=== PATIENT | female | born 1965 | race Caucasian/White ===

== ENCOUNTER 2019-08-14 21:29 | Emergency (ER) | payer MEDICAID, SELFPAY | END 2019-08-15 03:24 | disposition admitted as inpatient to this hospital (09) | LOC: ER 08-29 09:46 | PROVIDERS: Emergency Provider Emergency Medicine | DX: Z01.89 Encounter for other specified special examinations (principal) | CPT/HCPCS: 12345; 36415; 71045; 74177; 80053; 83690; 84484; 85025; 93005; 96365; 96375; 96376; 99283; 99285; J1170; J1200; J2270; J2405; J2543; J2765; Q9967 ==

== ENCOUNTER 2019-08-14 21:29 | Inpatient (IN) | payer MEDICAID, SELFPAY ==
--- NOTE | 2019-08-14 21:31 | XR_ITS ---
WS: [id number] Portable AP upright chest, 08/14/2019 Clinical Data: cp Comparison: None. Findings: No nodules, masses or effusions are seen. The heart is normal. The pulmonary vascularity is not increased. No pneumonia or pneumothorax is seen. XR/XR chest 1V portable [id number] Impression: Negative chest.
--- NOTE | 2019-08-14 21:31 | ECG_ITS ---
Measurements Intervals Street Rate: 87 P: 59 MS: 154 QRS: 24 QRSD: 92 T: 58 QT: 386 QTc: 466 SINUS RHYTHM POSSIBLE LEFT ATRIAL ENLARGEMENT [-0.1mV P WAVE IN V1/V2] MINIMAL ST DEPRESSION [0.025+ mV ST DEPRESSION] No previous ECG available for comparison Electronically Signed On 08-15-2019 12:54:14 CDT by Miranda Soler M.D. [id number]
[2019-08-14 22:00] VITALS: BP 181/123; PULSE 95; RESP 20; TEMP 37.3; O2SAT 96; BMI 38.4
[2019-08-14 22:08] LABS: Basophils # 0.1 10^3/uL (0.0-0.1); Basophils % 0.3 %; Eosinophils % 0.2 %; Hematocrit 49.1 % (37.0-47.0); Hemoglobin 16.7 g/dL (11.5-15.3); Lymphocytes # 2.7 10^3/uL (0.8-4.8); Lymphocytes % 14.1 %; Mean Corpuscular Hemoglobin 30.9 pg (28.0-34.0); Mean Corpuscular Volume 90.8 fL (81-99); Mean Platelet Volume 9.5 fL (7.4-10.4); Monocytes # 2.5 10^3/uL (0.2-0.9); Monocytes % 13.4 %; Neutrophils # 13.5 10^3/uL (1.8-7.7); Neutrophils % 71.5 %; Nucleated Red Blood Cells % 0 %; Platelet Count 329 10^3/cmm (130-400); Red Blood Count 5.41 10^6/uL (4.1-5.3); Red Cell Distribution Width 16.4 % (12.1-15.1); White Blood Count 18.9 10^3/uL (4.0-10.0)
[2019-08-14 22:22] LABS: Alanine Aminotransferase 13 U/L (0-33); Albumin Level 4.2 g/dL (3.5-5.2); Alkaline Phosphatase 117 IU/L (35-105); Anion Gap 17.3 (5-19); Aspartate Amino Transferase 18 U/L (0-32); Blood Urea Nitrogen 16 mg/dL (6-20); Carbon Dioxide 22 mmol/L (22-29); Chloride 104 mmol/L (98-107); Globulin 3.6 g/dL (1.3-4.6); Glomerular Filtration Rate 64.8 mL/min (90-130); Glucose 116 mg/dL (65-115); Osmolality Calculated 287 mOsm/kg (285-295); Potassium 3.3 mmol/L (3.5-5.1); Sodium 140 mmol/L (136-145); Total Bilirubin 0.5 mg/dL (0.15-1.2); Total Protein 7.8 g/dL (6.6-8.7)
[2019-08-14 22:31] LABS: Troponin(5th) Baseline 131 ng/mL (0-10)
--- NOTE | 2019-08-14 22:59 | ED_ITS ---
Entered by Brenda Restrepo, acting as scribe for Joo Lan MD Aug 14, 2019 21:29 HPI - Abdominal Pain General: Chief Complaint: Abdominal Pain Stated Complaint: CP Time Seen by Provider: 08/14/19 22:58 Source: patient Mode of arrival: ambulatory History of Present Illness: HPI narrative: 54 y/o female presents to the ED with complaint of abd/flank pain. Pt states he recently had her gallbladder removed and is scheduled to see Dr. Rodriguez Sunday morning for kidney stones. She has had burning/ pain with urination and last night had N/V, cold sweats and elevated HR. She states she has been in constant pain since before her gallbladder removal but last night it became exponentially worse . Her normal HR is in the 70s and last night she reached 170s-180s. Tonight she is also having chest pain ( from being in so much pain ). She does have a cardiac hx ( cardiomyopathy, stent placement, stenosis). MD elicited complaint: abdominal pain, flank pain and other (CP) Pertinent past history: kidney stones and other (cardiac hx) Pain Consistency: constant Location: Chest, RLQ, R flank and Pelvis Severity: severe Relieving factors: nothing Associated Symptoms: Reports chills, dysuria, nausea and vomiting; Denies diarrhea Review of Systems Const: Reports: chills and night sweats; Denies: body aches or change in appetite Eyes: Denies: blurry vision or eye discomfort ENMT: Denies: throat pain or dental pain Card: Reports: chest pain and shortness of breath on exertion GI: Reports: abdominal pain, nausea and vomiting; Denies: diarrhea : Reports: flank pain (R), painful urination and pelvic pain Musc: Denies: neck pain or back pain Neuro: Denies: headache Psych: Denies: depression Vipin/Lymph: Denies: easy bruising All/Imm: Denies: hives PFSH ED PFSH: Medical History Attention deficit hyperactivity disorder (ADHD) Family history of lactose intolerance History of breast cancer History of hiatal hernia History of irritable bowel syndrome History of kidney stones History of night terrors History of posttraumatic stress disorder (PTSD) Hypertension Spleen injury Vitamin D deficiency Surgical History History of breast lump removal x 7 1979's History of section x 4 History of cholecystectomy Family History Other Anesthesia complication Cancer Diabetes Hypertension Lung disease Stroke Social History Smoking and tobacco status: current every day smoker Second hand smoke exposure: Yes Smoking risk assessment/counseling performed?: Yes Alcohol intake: never Desire information about alcohol rehabilitation?: No Counseling given: No Desire information about substance/drug rehabilitation?: No Counseling given: No Adopted: No Caregiver/support person: Yes Lives independently: Yes Household members: significant other and caregiver Housing: House Marital status: Single service: No Current occupational status: unemployed 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 occupation: 4 History of recent travel: No Current gender identity: Female Physical Exam Const: COMMON NORMALS: oriented x3 NUTRITIONAL APPEARANCE: obese HENMT: COMMON NORMALS: normocephalic and head/scalp atraumatic HEAD & SCALP: normocephalic and atraumatic Eye: COMMON NORMALS: PERRL and EOMs intact bilaterally PUPIL: Yes PERRL Neck/C-Spine: COMMON NORMALS: full ROM and supple Chest: COMMONS NORMALS: inspection of chest normal and palpation of chest normal Resp: COMMON NORMALS: normal respiratory effort, no retractions, no use of accessory muscles and clear to auscultation bilaterally AUSCULTATION: clear to auscultation bilaterally Cardio: COMMON NORMALS: regular rhythm and no murmurs RATE: tachycardic RHYTHM: regular rhythm GI: COMMON NORMALS: normal to inspection, nondistended, normoactive bowel sounds, soft to palpation and no masses PALPATION: Yes soft and Yes tender Extremity: COMMON NORMALS: normal to inspection and full ROM Neuro: COMMON NORMALS: oriented x3, moves all extremities and no focal motor deficits SPEECH: other (pressured speech) Psych: COMMON NORMALS: mental status grossly normal and thought process normal THOUGHT PROCESS: normal thought process Skin: COMMON NORMALS: no rashes or lesions noted and no wounds GENERAL SKIN EXAM: no rashes or lesions noted Course Vital Signs: Vital signs: Vital Signs Temperature 98.6 F 08/14/19 23:25 Pulse Rate 88 08/15/19 00:48 Respiratory Rate 18 08/15/19 01:37 Blood Pressure 166/121 08/15/19 00:48 Pulse Oximetry 94 08/15/19 00:48 MDM - Abdominal Pain MDM Narrative: Medical decision making narrative: Patient presents here with flank pain abdominal pain from a kidney stone. Patient's pain is improved here. CT scan shows a 5 mm kidney stone. Patient also has elevated troponin I spoke to Dr. Card and will admit to trend troponin. Also spoke to Dr. Rodriguez and will admit for kidney stone as well. Lab Data: Labs: Lab Results 08/14/19 08/14/19 08/14/19 Range/Units 21:49 21:49 21:49 WBC 18.9 H (4.0-10.0) 10^3/ uL RBC 5.41 H (4.1-5.3) 10^6/u L Hgb 16.7 H (11.5-15.3) g/dL Hct 49.1 H (37.0-47.0) % MCV 90.8 (81-99) fL MCH 30.9 (28.0-34.0) pg MCHC 34.0 (30.0-36.0) g/dL RDW 16.4 H (12.1-15.1) % Plt Count 329 (130-400) 10^3/c mm MPV 9.5 (7.4-10.4) fL Neut % (Auto) 71.5 % Lymph % (Auto) 14.1 % [place] % (Auto) 13.4 % Eos % (Auto) 0.2 % Baso % (Auto) 0.3 % Neut # (Auto) 13.5 H (1.8-7.7) 10^3/u L Lymph # (Auto) 2.7 (0.8-4.8) 10^3/u L [place] # (Auto) 2.5 H (0.2-0.9) 10^3/u L Eos # (Auto) 0.0 (0.0-0.8) 10^3/u L Baso # (Auto) 0.1 (0.0-0.1) 10^3/u L Nucleated RBC % (a uto) 0 % Nucleated RBCs # 0.0 /100WBC Sodium 140 (136-145) mmol/L Potassium 3.3 L (3.5-5.1) mmol/L Chloride 104 (98-107) mmol/L Carbon Dioxide 22 (22-29) mmol/L Anion Gap 17.3 (5-19) BUN 16 (6-20) mg/dL Creatinine 0.9 (0.5-0.9) mg/dL GFR Calculation 64.8 L (90-130) mL/min Glucose 116 H (65-115) mg/dL Calculated Osmolal ity 287 (285-295) mOsm/k g Calcium 10.0 (8.5-10.5) mg/dL Total Bilirubin 0.5 (0.15-1.2) mg/dL AST 18 (0-32) U/L ALT 13 (0-33) U/L Alkaline Phosphata se 117 H (35-105) IU/L Troponin T Baselin e 131 H* (0-10) ng/mL Troponin T 120 Min [place] (0-10) ng/mL Delta Troponin T (0-10) ABS# Total Protein 7.8 (6.6-8.7) g/dL Albumin 4.2 (3.5-5.2) g/dL Globulin 3.6 (1.3-4.6) g/dL Lipase (13-60) U/L Urine Color (Yellow) Urine Appearance (CLEAR) Urine pH (5-7) Ur Specific Gravit y (1.005-1.030) Urine Protein (Negative) Urine Glucose (UA) (Normal) Urine Ketones (Negative) Urine Blood (Negative) Urine Nitrate (Negative) Urine Bilirubin (NEGATIVE) Urine Urobilinogen (Negative) mg/dL Ur Leukocyte Arabella ase (Negative) Urine RBC (0-2) /hpf Urine WBC (0-5) /hpf Ur Squamous Epith Cells (0-5) Urine Bacteria (NONE) Hyaline Casts Urine Mucus 08/14/19 08/14/19 08/15/19 Range/Units 21:49 23:50 00:22 WBC (4.0-10.0) 10^3/ uL RBC (4.1-5.3) 10^6/u L Hgb (11.5-15.3) g/dL Hct (37.0-47.0) % MCV (81-99) fL MCH (28.0-34.0) pg MCHC (30.0-36.0) g/dL RDW (12.1-15.1) % Plt Count (130-400) 10^3/c mm MPV (7.4-10.4) fL Neut % (Auto) % Lymph % (Auto) % [place] % (Auto) % Eos % (Auto) % Baso % (Auto) % Neut # (Auto) (1.8-7.7) 10^3/u L Lymph # (Auto) (0.8-4.8) 10^3/u L [place] # (Auto) (0.2-0.9) 10^3/u L Eos # (Auto) (0.0-0.8) 10^3/u L Baso # (Auto) (0.0-0.1) 10^3/u L Nucleated RBC % (a uto) % Nucleated RBCs # /100WBC Sodium (136-145) mmol/L Potassium (3.5-5.1) mmol/L Chloride (98-107) mmol/L Carbon Dioxide (22-29) mmol/L Anion Gap (5-19) BUN (6-20) mg/dL Creatinine (0.5-0.9) mg/dL GFR Calculation (90-130) mL/min Glucose (65-115) mg/dL Calculated Osmolal ity (285-295) mOsm/k g Calcium (8.5-10.5) mg/dL Total Bilirubin (0.15-1.2) mg/dL AST (0-32) U/L ALT (0-33) U/L Alkaline Phosphata se (35-105) IU/L Troponin T Baselin e (0-10) ng/mL Troponin T 120 Min [place] 146.5 H (0-10) ng/mL Delta Troponin T 15.5 H* (0-10) ABS# Total Protein (6.6-8.7) g/dL Albumin (3.5-5.2) g/dL Globulin (1.3-4.6) g/dL Lipase 11 L (13-60) U/L Urine Color Yellow (Yellow) Urine Appearance Hazy A (CLEAR) Urine pH 5 (5-7) Ur Specific Gravit y 1.025 (1.005-1.030) Urine Protein Trace (Negative) Urine Glucose (UA) Norm (Normal) Urine Ketones Negative (Negative) Urine Blood 3+ H (Negative) Urine Nitrate Negative (Negative) Urine Bilirubin 1+ H (NEGATIVE) Urine Urobilinogen 1 H (Negative) mg/dL Ur Leukocyte Arabella ase Negative (Negative) Urine RBC >100 H (0-2) /hpf Urine WBC None (0-5) /hpf Ur Squamous Epith Cells 0-4 H (0-5) Urine Bacteria Trace (NONE) Hyaline Casts 0-4 H Urine Mucus 1+ Imaging Data ^: CT Abd/Pel: Radiologist's impression: CT Scan Report Signed Patient: Rodney Nunez #: [id number] : 1965Acct#:[id number] Age/Sex: 54 / FADM Date: 08/14/19 Loc: ERRoom/Bed: Attending Dr: Ordering Provider/Ordering MD: Joo Lan MD Date of Service: 08/14/19 Procedure(s): CT abdomen pelvis w con* [id number] Accession Number(s): [id number] Report Number: [id number] PROCEDURE INFORMATION: Exam: CT Abdomen And Pelvis With Contrast Exam date and time: 08/14/2019 11:11 PM Age: 54 years old Clinical indication: Nausea and vomiting; Abdominal pain; Generalized; Prior surgery; Surgery date: 6+ months; Surgery type: Cholecystectomy, spleenectomy; Additional info: Abd pain TECHNIQUE: Imaging protocol: Computed tomography of the abdomen and pelvis with intravenous contrast. Total DLP: 1701.68 mGy-cm Radiation optimization: All CT scans at this facility use at least one of these dose optimization techniques: automated exposure control; mA and/or kV adjustment per patient size (includes targeted exams where dose is matched to clinical indication); or iterative reconstruction. Contrast material: OMNI 300; Contrast volume: 95 ml; Contrast route: 20G; COMPARISON: No relevant prior studies available. FINDINGS: Liver: Normal. No mass. Gallbladder and bile ducts: Cholecystectomy. Pancreas: Normal. No ductal dilation. Spleen: Normal. No splenomegaly. Adrenals: Normal. No mass. Kidneys and ureters: Bilateral renal cysts. Right kidney nonobstructive calyceal stones. Right mid ureter 5 mm calculus with moderate hydronephrosis and hydroureter with some heterogeneous enhancement of the right kidney perhaps reflecting infection. Stomach and bowel: Unremarkable. No obstruction. No mucosal thickening. Appendix: No evidence of appendicitis. Intraperitoneal space: Unremarkable. No free air. No significant fluid collection. Vasculature: Unremarkable. No abdominal aortic aneurysm. Lymph nodes: Unremarkable. No enlarged lymph nodes. Bladder: Unremarkable as visualized. Reproductive: Unremarkable as visualized. Bones/joints: Unremarkable. No acute fracture. Soft tissues: Unremarkable. CT/CT abdomen pelvis w con* [id number] IMPRESSION: 1. Right mid ureter 5 mm calculus with moderate hydronephrosis and hydroureter with some heterogeneous enhancement of the right kidney perhaps reflecting infection. 2. Cholecystectomy. 3. Bilateral renal cysts. 4. Right kidney nonobstructive calyceal stones. Radiation Dose CTDIVOL = (mGy): DLP = 1701.68 (mGy-cm) CXR: Attestation: I personally reviewed and interpreted this imaging study as follows: My impression: no acute abnormaity EKG Data ^: EKG 1: Attestation: I personally reviewed and interpreted this EKG as follows: EKG interpretation date: 08/14/19 EKG interpretation time: 23:09 Interpretation: nsr hr [address] or t wave abnormalities qrs 92 qtc 431 EKG 2: Attestation: I personally reviewed and interpreted this EKG as follows: EKG interpretation date: 08/15/19 EKG interpretation time: 00:01 Interpretation: nsr hr [address] or t wave abnormalities Discharge Plan Discharge Patient Disposition: Admitted As Inpatient Clinical Impression: Renal calculus, right Condition: Stable Coding Level of Care Code 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
--- NOTE | 2019-08-14 23:05 | CTR_ITS ---
PROCEDURE INFORMATION: Exam: CT Abdomen And Pelvis With Contrast Exam date and time: 08/14/2019 11:11 PM Age: 54 years old Clinical indication: Nausea and vomiting; Abdominal pain; Generalized; Prior surgery; Surgery date: 6+ months; Surgery type: Cholecystectomy, spleenectomy; Additional info: Abd pain TECHNIQUE: Imaging protocol: Computed tomography of the abdomen and pelvis with intravenous contrast. Total DLP: 1701.68 mGy-cm Radiation optimization: All CT scans at this facility use at least one of these dose optimization techniques: automated exposure control; mA and/or kV adjustment per patient size (includes targeted exams where dose is matched to clinical indication); or iterative reconstruction. Contrast material: OMNI 300; Contrast volume: 95 ml; Contrast route: 20G; COMPARISON: No relevant prior studies available. FINDINGS: Liver: Normal. No mass. Gallbladder and bile ducts: Cholecystectomy. Pancreas: Normal. No ductal dilation. Spleen: Normal. No splenomegaly. Adrenals: Normal. No mass. Kidneys and ureters: Bilateral renal cysts. Right kidney nonobstructive calyceal stones. Right mid ureter 5 mm calculus with moderate hydronephrosis and hydroureter with some heterogeneous enhancement of the right kidney perhaps reflecting infection. Stomach and bowel: Unremarkable. No obstruction. No mucosal thickening. Appendix: No evidence of appendicitis. Intraperitoneal space: Unremarkable. No free air. No significant fluid collection. Vasculature: Unremarkable. No abdominal aortic aneurysm. Lymph nodes: Unremarkable. No enlarged lymph nodes. Bladder: Unremarkable as visualized. Reproductive: Unremarkable as visualized. Bones/joints: Unremarkable. No acute fracture. Soft tissues: Unremarkable. CT/CT abdomen pelvis w con* [id number] IMPRESSION: 1. Right mid ureter 5 mm calculus with moderate hydronephrosis and hydroureter with some heterogeneous enhancement of the right kidney perhaps reflecting infection. 2. Cholecystectomy. 3. Bilateral renal cysts. 4. Right kidney nonobstructive calyceal stones. Radiation Dose CTDIVOL = (mGy): DLP = 1701.68 (mGy-cm)
[2019-08-14 23:24] VITALS: RESP 18
[2019-08-14] MEDS: ondansetron 2 mg/ML SDV 2 mL 4 MG IVP (23:24)
[2019-08-14] MEDS: HYDROmorphone 1 mg/mL INJ 1 mL IVP (23:24)
[2019-08-14 23:25] VITALS: BP 184/110; PULSE 75; RESP 18; TEMP 37; O2SAT 96
--- NOTE | 2019-08-14 23:31 | ECG_ITS ---
Measurements Intervals [place] Rate: 75 P: 63 CA: 157 QRS: 48 QRSD: 101 T: 60 QT: 431 QTc: 484 SINUS RHYTHM POSSIBLE LEFT ATRIAL ENLARGEMENT [-0.1mV P WAVE IN V1/V2] LOW QRS VOLTAGE IN PRECORDIAL LEADS [QRS DEFLECTION < 1.0 mV IN CHEST LEADS] POSSIBLE ANTERIOR MYOCARDIAL INFARCTION , PROBABLY OLD [30 ms Q WAVE IN V3/V4, OR R < 0.2 mV IN V4] No previous ECG available for comparison Electronically Signed On 08-15-2019 13:04:19 CDT by Miranda Soler M.D. [id number]
[2019-08-14 23:33] LABS: Lipase 11 U/L (13-60)
[2019-08-14] MEDS: iohexol 300 mg/mL 100 mL Btl IV (23:40)
[2019-08-14 23:58] VITALS: BP 133/99; PULSE 99; RESP 15; O2SAT 95
--- NOTE | 2019-08-14 23:58 | PC.NURSE ---
EKG done at 2355 and shown to ER doctor
[2019-08-15] VITALS (22 sets, daily range): BP systolic 124–186; BP diastolic 68–121; PULSE 57–88; RESP 16–22; TEMP 36.4–36.8; O2SAT 91–96
[2019-08-15 00:29] LABS: Troponin 5 2HR 146.5 ng/mL (0-10); Troponin 5 2HR Delta 15.5 ABS# (0-10)
[2019-08-15] MEDS: HYDROmorphone 1 mg/mL INJ 1 mL IVP ×2 (00:45)
[2019-08-15] MEDS: ondansetron 2 mg/ML SDV 2 mL 4 MG IVP ×3 (00:46→14:28)
[2019-08-15 00:50] LABS: Blood Urine 3+ (Negative); Glucose Urine UA Norm (Normal); Ketones Urine Negative (Negative); Protein Urine Trace (Negative); Specific Gravity, Urine 1.025 (1.005-1.030); Urine Appearance Hazy (CLEAR); Urine Color Yellow (Yellow); pH Urine 5 (5-7)
[2019-08-15 00:51] LABS: Add Urine Microscopic? YES; Bilirubin Urine 1+ (NEGATIVE); Leukocyte Esterase Urine Negative (Negative); Nitrate Urine Negative (Negative); Urobilinogen Urine 1 mg/dL (Negative)
[2019-08-15 00:57] LABS: Add Urine Culture? Yes; Bacteria Urine TRACE; Hyaline Casts Urine 0-4; Mucus Urine 1+; RBC Urine >100 /hpf (0-2); Squamous Epithelial Cell Urine 0-4 (0-5)
--- NOTE | 2019-08-15 01:10 | P.HP_ITS ---
Providers/Chief Complaint Chief Complaint: CP History of Present Illness Maribel Nunez is a 54 year old female who has established coronary disease, stent 13 years ago, hiatal hernia, irritable bowel syndrome, chronic kidney stone came in with chief complaint of worsening abdominal pain. Patient is stating that she got diagnosed with kidney stone 3 weeks ago, she has been having recurrent abdominal pains without any nausea or vomiting until last night when she started experiencing nausea, vomiting, excruciating abdominal pain more than 10, radiating towards her groin and back associated with hot flashes, fever, chills. She initially thought she is having flareup of IBS took a laxative and then her symptoms got worse. She is denying chest pain, shortness of breath, she is smoking half a pack a day, denies alcohol use on daily basis. Diagnostics in ER revealed sepsis secondary to right-sided pyelonephritis, 5 mm kidney stone She has received Zosyn in ER She kept drinking water while sitting in ER now having recurrent bouts of emesis She received multiple doses of Reglan and Zofran EKG shows normal sinus rhythm, her troponin significantly high, no signs of ischemia on EKG Patient is stating her temperature at home was 102 and was was 99 Review of Systems Const: Reports: fever, chills and body aches Eyes: Denies: change in vision ENMT: Denies: throat pain Card: Denies: chest pain Resp: Denies: shortness of breath GI: Reports: abdominal pain, nausea, vomiting, bloating and cramping : Reports: flank pain, difficulty urinating, painful urination, urinary frequency and blood in urine Musc: Denies: neck pain or back pain Skin/Breast: Denies: rash Neuro: Denies: headache Psych: Reports: anxiety and irritability Endo: Denies: excessive urination Vipin/Lymph: Denies: easy bruising All/Imm: Denies: hives Medications/Allergies Allergies Allergy/AdvReac Type Severity Reaction Status Date / Time codeine Allergy hives Verified 07/28/19 15:00 latex Allergy ALGY-Rash Verified 08/14/19 22:07 montelukast [From Singulair] Allergy Makes her Verified 07/28/19 15:00 feel fussy Sulfa Drugs Allergy Rash Uncoded 07/28/19 15:00 PFSH Acute PFSH: Medical History (Updated 08/15/19 @ 02:15 by Sridhar Jhaveri MD) Attention deficit hyperactivity disorder (ADHD) Coronary disease Family history of lactose intolerance History of breast cancer History of hiatal hernia History of irritable bowel syndrome History of kidney stones History of night terrors History of posttraumatic stress disorder (PTSD) Hypertension Spleen injury Vitamin D deficiency Surgical History (Updated 08/15/19 @ 02:15 by Sridhar Jhaveri MD) History of breast lump removal x 7 1980's History of section x 4 History of cholecystectomy Stented coronary artery Family History Other Anesthesia complication Cancer Diabetes Hypertension Lung disease Stroke Social History Smoking and tobacco status: current every day smoker Second hand smoke exposure: Yes Smoking risk assessment/counseling performed?: Yes Alcohol intake: never Desire information about alcohol rehabilitation?: No Counseling given: No Desire information about substance/drug rehabilitation?: No Counseling given: No Adopted: No Caregiver/support person: Yes Lives independently: Yes Household members: significant other and caregiver Housing: House Marital status: Single service: No Current occupational status: unemployed Current occupation: 4 History of recent travel: No Current gender identity: Female Vitals/I&O/Wt Last Vital Signs Temp 98.6 F 08/14/19 23:25 Pulse 88 08/15/19 00:48 Resp 18 08/15/19 00:48 BP 166/121 08/15/19 00:48 Pulse Ox 94 08/15/19 00:48 Weight last 48 hrs Weight 95.254 kg Physical Exam Narrative: EXAM NARRATIVE: Appears stated age In severe distress due to abdominal pain, she has her right hand on her right f lank and groin area She is having multiple bouts of emesis, bilious vomitus contents No active chest pain, S1, S2 sinus tachycardia heart rate 105 Chest is clear to auscultation with mild crackles at the bases Abdomen soft, severe tenderness right CVA, she is not letting me examine her abdomen Lower extremity no signs of edema gangrene or ulcer Patient is very irritable because of the pain Data : 08/14/19 21:49 08/14/19 21:49 A&P Assessment and plan (1) Renal calculus, right: Status: Acute Code(s): N20.0 - Calculus of kidney Additional A&P Information Sepsis secondary to right-sided pyelonephritis Sepsis criteria met with tachycardia, leukocytosis, will check lactic acid, 5 mm right mid ureter calculus with moderate hydronephrosis D5 half-normal saline with potassium fluids running at 100 mL/h I would use ceftriaxone 5 mm stone is most likely the nidus of infection, consult Dr. Rodriguez, ER physician Dr. Lan has contacted Dr. Rodriguez Blood culture, urine culture sent Abnormal troponin without active chest pain Patient is chest pain-free, EKG showing normal sinus rhythm without any ischemic changes on filing or registry clerk closely with serial EKGs and troponin She has a history of car established coronary disease with stent placement 13 years ago Irritable bowel syndrome: No active exacerbation Hypokalemia: Repleted Fluids: D5 half-normal with potassium DVT prophylaxis SCDs, avoid anticoagulation in case she would need any intervention N.p.o. Attestations Medical Necessity Statement*: Anticipating stay in the hospital to cross more than 2 midnights for right pyonephritis and kidney stone and monitor for abnormal troponin Time Spent in Patient Care: 40 Coding Level of Care Code Acute Edge Banding Off Bearer for [facility] Fwd Diagnoses Renal calculus, right N20.0
[2019-08-15] MEDS: diphenhydrAMINE 50 mg/mL SDV 1mL IVP (01:37)
[2019-08-15] MEDS: morphine 4 mg/mL SDV 1 mL IVP ×5 (01:37→14:07)
[2019-08-15] MEDS: metoclopramide 5 mg/mL SDV 2 mL 10 MG IVP (01:37)
[2019-08-15] MEDS: piperacillin-tazobactam 3.375 GM in sodium chloride 0.9% (plus) 100 ML IV (01:38)
--- NOTE | 2019-08-15 03:20 | PC.NURSE ---
EKG done 314 and shown to ER doctor
--- NOTE | 2019-08-15 03:31 | ECG_ITS ---
Measurements Intervals [place] Rate: 66 P: 70 TX: 179 QRS: 42 QRSD: 89 T: 60 QT: 510 QTc: 535 SINUS RHYTHM LOW QRS VOLTAGE IN PRECORDIAL LEADS [QRS DEFLECTION < 1.0 mV IN CHEST LEADS] MODERATE ST DEPRESSION [0.05+ mV ST DEPRESSION] PROLONGED QT INTERVAL CRITICAL TEST RESULT No previous ECG available for comparison Electronically Signed On 08-15-2019 13:02:30 CDT by Miranda Soler M.D. [email or web address]
[2019-08-15] MEDS: dextrose 5%-ns + KCl 20 20 MEQ/1,000 ML BAG 100 MEQ IV ×2 (04:14→14:25)
[2019-08-15 05:54] LABS: Basophils % 0.3 %; Eosinophils % 0.2 %; Hematocrit 47.3 % (37.0-47.0); Hemoglobin 15.9 g/dL (11.5-15.3); Lymphocytes # 2.6 10^3/uL (0.8-4.8); Lymphocytes % 22.3 %; Mean Corpuscular HGB Conc 33.6 g/dL (30.0-36.0); Mean Corpuscular Hemoglobin 31.9 pg (28.0-34.0); Mean Corpuscular Volume 94.8 fL (81-99); Mean Platelet Volume 9.4 fL (7.4-10.4); Monocytes # 1.4 10^3/uL (0.2-0.9); Neutrophils # 7.6 10^3/uL (1.8-7.7); Neutrophils % 64.9 %; Nucleated Red Blood Cells % 0 %; Platelet Count 313 10^3/cmm (130-400); Red Blood Count 4.99 10^6/uL (4.1-5.3); Red Cell Distribution Width 16.7 % (12.1-15.1); White Blood Count 11.8 10^3/uL (4.0-10.0)
--- NOTE | 2019-08-15 05:58 | P.CONIM_ITS ---
Providers/Reason For Consult Consulting Physican/Specialty*: Rodriguez/Urology Reason for Consult*: stone, pain Attending Physician: Sridhar Jhaveri MD History of Present Illness History of Present Illness Maribel Nunez is a 54 year old female admitted through ED with 2+ week history of RIGHT renal colicky pain, self reported fever, CT diagnosis of obstructing 5mm RIGHT proximal ureteral stone, leukocytosis, but no pyuria on UA at admission. Pain was refractory,severe and not well controlled in ED. Additional stone in RIGHT kidney. Complicated by chronic PLAVIX use and mixed reports of Chest Pain. Troponins drawn in ED were elevated. Received a dose of TORADOL in ED. Received dose of Zosyn in ED and Rocephin therapeutic dosing on admission for concerns of obstructive pyelonephritis/possible sepsis. Lactic acid = 0.9 Followup WBC this AM had decreased from 18-11. Pain better controlled per nursing note review. I reviewed her options in detail including delayed ESWL with or without stent in preliminary, endoscopy or just stenting with delayed treatment. Due to the refractory pain and the severity of the pain she has elected proceed with attempt at endoscopic treatment of the stone later today and if unsuccessful in accessing the stone then simply stent placement with either delayed endoscopy after passive dilation or delayed ESWL after adequate time off of blood thinner. All of this will be contingent upon risk assessment from cardiac perspective given her elevated troponins. Review of Systems Const: Reports: fever; Denies: change in weight Eyes: Denies: change in vision or blurry vision ENMT: Denies: throat pain or painful swallowing Card: Reports: chest pain (Very transient chest pain when she was having severe renal colic and associated shortness of breath. Resolved) Resp: Denies: productive cough or wheezing GI: Reports: abdominal pain, nausea and vomiting; Denies: vomiting blood : Reports: flank pain; Denies: urinary hesitancy Musc: Reports: back pain (More typical for renal colic though) Skin/Breast: Denies: rash, itching or redness Neuro: Denies: dizziness, confusion or slurred speech Psych: Reports: anxiety (Related to her ongoingSymptoms from the stone); Denies: depression Endo: Denies: heat intolerance or change in body appearance Vipin/Lymph: Reports: easy bruising; Denies: petechiae or enlarged lymph nodes All/Imm: Denies: facial swelling or acute wheezing Meds/Allergies Home Medications and Allergies Home Medications Medication Instructions Recorded Confirmed Type albuterol sulfate 2 mg/5 mL oral 2 mg PO TID PRN 07/28/19 08/15/19 History syrup albuterol sulfate 90 mcg/actuation 2 puff INHALATION QID PRN 07/28/19 08/15/19 History aerosol inhaler atorvastatin 40 mg tablet 40 mg PO DAILY 07/28/19 08/15/19 History benzonatate 200 mg capsule 200 mg PO BID PRN #60 cap 07/28/19 08/15/19 Rx bumetanide 0.5 mg tablet 0.5 mg PO DAILY 07/28/19 08/15/19 History cetirizine 10 mg capsule 10 mg PO DAILY 07/28/19 08/15/19 History clopidogrel 75 mg tablet 75 mg PO DAILY 07/28/19 08/15/19 History epinephrine 0.3 mg/0.3 mL 0.3 mg IM Q15M PRN 07/28/19 08/15/19 History injection syringe fluticasone propionate 50 2 spray INTRANASAL DAILY PRN 07/28/19 08/15/19 History mcg/actuation nasal spray,suspension hydrocortisone 1 % topical cream 1 applic TOPICAL TID PRN 07/28/19 08/15/19 History hyoscyamine sulfate 0.125 mg tablet 0.125 mg PO QID 07/28/19 08/15/19 History ipratropium 0.5 mg-albuterol 3 mg 3 ml INHALATION QID PRN 07/28/19 08/15/19 History (2.5 mg base)/3 mL nebulization soln lisinopril 5 mg tablet 5 mg PO DAILY 07/28/19 08/15/19 History lubiprostone 24 mcg capsule 24 mcg PO DAILY 07/28/19 08/15/19 History metoprolol tartrate 25 mg tablet 25 mg PO DAILY 07/28/19 08/15/19 History naproxen sodium 220 mg tablet 220 mg PO BID PRN 07/28/19 08/15/19 History nitroglycerin 0.4 mg sublingual 0.4 mg SUBLINGUAL Q5M PRN 07/28/19 08/15/19 History tablet omeprazole 40 mg capsule,delayed 40 mg PO BID 07/28/19 08/15/19 History release potassium chloride 20 mEq 20 meq PO DAILY 07/28/19 08/15/19 History tablet,extended release promethazine 25 mg tablet 25 mg PO TID PRN 07/28/19 08/15/19 History sertraline 100 mg tablet 100 mg PO DAILY 07/28/19 08/15/19 History tiotropium bromide 18 mcg capsule 1 cap INHALATION DAILY 07/28/19 08/15/19 History with inhalation device triamcinolone acetonide 0.1 % 1 applic TOPICAL BID PRN 07/28/19 08/15/19 History topical cream Allergies Allergy/AdvReac Type Severity Reaction Status Date / Time codeine Allergy hives Verified 07/28/19 15:00 latex Allergy ALGY-Rash Verified 08/14/19 22:07 montelukast [From Singulair] Allergy Makes her Verified 07/28/19 15:00 feel fussy Sulfa Drugs Allergy Rash Uncoded 07/28/19 15:00 Current Medications Current Medications Generic Name Dose Route Start Last Admin Trade Name Freq PRN Reason Stop Dose Admin Potassium Chloride/Dextrose/Sod Cl 20 meq in 1,000 mls @ 100 mls/hr 08/15/19 03:33 08/15/19 04:14 Dextrose 5%-Ns + Kcl 20 IV 100 mls/hr .Q10H HEATHER Administration Morphine Sulfate 4 mg 08/15/19 03:33 08/15/19 04:07 Morphine IVP 4 mg Q2H PRN Administration SEVERE PAIN PFSH Acute PFSH: Medical History (Updated 08/15/19 @ 07:58 by Colin Rodriguez MD) Attention deficit hyperactivity disorder (ADHD) Coronary disease Family history of lactose intolerance History of breast cancer History of hiatal hernia History of irritable bowel syndrome History of kidney stones History of night terrors History of posttraumatic stress disorder (PTSD) Hydronephrosis concurrent with and due to calculi of kidney and ureter Hypertension Renal calculus, right Renal colic on right side Spleen injury Ureteral calculi Vitamin D deficiency Surgical History History of breast lump removal x 7 1979's History of section x 4 History of cholecystectomy Stented coronary artery Family History Other Anesthesia complication Cancer Diabetes Hypertension Lung disease Stroke Social History Smoking and tobacco status: current every day smoker Second hand smoke exposure: Yes Smoking risk assessment/counseling performed?: Yes Alcohol intake: never Desire information about alcohol rehabilitation?: No Counseling given: No Desire information about substance/drug rehabilitation?: No Counseling given: No Adopted: No Caregiver/support person: Yes Lives independently: Yes Household members: significant other and caregiver Housing: House Marital status: Single service: No Current occupational status: unemployed Current occupation: 4 History of recent travel: No Current gender identity: Female Vitals/I&O/Wt Last Vital Signs Temp 97.8 F 08/15/19 04:35 Pulse 70 08/15/19 04:35 Resp 20 H 08/15/19 04:35 BP 124/85 08/15/19 04:35 Pulse Ox 91 08/15/19 04:35 08/14/19 08/14/19 08/15/19 14:59 22:59 06:59 Intake Total 100 / 100 Balance 100 / 100 Weight last 48 hrs Weight 244 lb Weight 210 lb Physical Exam Const: COMMON NORMALS: no apparent distress, alert and well nourished GENERAL APPEARANCE: well kempt and well developed ORIENTATION/CONSCIOUSNESS: not confused HENMT: COMMON NORMALS: normocephalic and head/scalp atraumatic HEAD & SCALP: normocephalic and atraumatic Eye: COMMON NORMALS: conjunctivae normal and no scleral icterus CON JUNCTIVA: Yes conjunctivae normal Neck/C-Spine: COMMON NORMALS: full ROM GENERAL: Yes normal visual inspection Resp: COMMON NORMALS: normal respiratory effort EFFORT & INSPECTION: No labored and No actively coughing GI: COMMON NORMALS: soft to palpation and no masses PALPATION: Yes soft and Yes tender : OTHER: Bladder not distended Extremity: COMMON NORMALS: no clubbing, cyanosis or edema Neuro: COMMON NORMALS: no focal motor deficits SENSORIUM/ORIENTATION: Yes alert Psych: COMMON NORMALS: mental status grossly normal APPEARANCE: Yes grossly normal and Yes well kempt ATTITUDE: Yes calm and Yes engaged Skin: COMMON NORMALS: no rashes or lesions noted and no jaundice GENERAL SKIN EXAM: no rashes or lesions noted Data Other Data: Other data: CT Scan and all labs. A&P Assessment and plan (1) Ureteral calculi: Status: Acute Code(s): N20.1 - Calculus of ureter (2) Hydronephrosis concurrent with and due to calculi of kidney and ureter: Status: Acute Code(s): N13.2 - Hydronephrosis with renal and ureteral calculous obstruction (3) Renal calculus, right: Status: Acute Code(s): N20.0 - Calculus of kidney (4) Platelet inhibition due to Plavix: Status: Acute Code(s): Z79.02 - roasterman (current) use of antithrombotics/antiplatelets (5) Renal colic on right side: Status: Acute Code(s): N23 - Unspecified renal colic (6) Elevated troponin: Status: Acute Code(s): R79.89 - Other specified abnormal findings of blood chemistry (7) Coronary disease: Status: Acute Code(s): I25.10 - Atherosclerotic heart disease of [place] coronary artery without angina pectoris Consult Attestations Medical Necessity Statement: Refractory right renal colic secondary to stone. Complicated by concerns for concurrent pyelo/sepsis. Requires inpatient care. Coding Level of Care Code Acute Certification Officer for g Fwd Exam Comprehensive Diagnoses Ureteral calculi N20.1 Hydronephrosis concurrent with and due to calculi of kidney and ureter N13.2 Renal calculus, right N20.0 Platelet inhibition due to Plavix Z79.02 Renal colic on right side N23 Elevated troponin R79.89 Coronary disease I25.10
[2019-08-15 06:07] LABS: Anion Gap 12.8 (5-19); Blood Urea Nitrogen 15 mg/dL (6-20); Calcium 9.3 mg/dL (8.5-10.5); Carbon Dioxide 26 mmol/L (22-29); Chloride 106 mmol/L (98-107); Glomerular Filtration Rate 86.6 mL/min (90-130); Glucose 133 mg/dL (65-115); Osmolality Calculated 290 mOsm/kg (285-295); Potassium 3.8 mmol/L (3.5-5.1); Sodium 141 mmol/L (136-145)
[2019-08-15 06:08] LABS: Lactic Acid level (Lactate) 0.9 mmol/L (0.5-2.2)
[2019-08-15] MEDS: HYDROmorphone 1 mg/mL INJ 1 mL 2 MG IVP ×3 (08:22→16:38)
[2019-08-15] MEDS: cefTRIAXone 1,000 MG in sodium chloride 0.9% (plus) 100 ML 100 MG IV (08:56)
--- NOTE | 2019-08-15 11:11 | PC.CHAP ---
Pastoral Care Encounter/Spiritual Assessment Type of Contact [] Declined motor tune up specialist visit [] Patient/Family/Request visit [] Outpatient visit [] Follow-up visit [] Physician referral [] Code/Alert [x] Routine visit [] Staff referral [] Actively dying [] Patient sleeping [] Family support [] [] Out of room [] Palliative care [] [] Receiving care in room [] Pre-surgical visit [] Trauma [] Long length of stay [] ICU visit [] Other: Relational/Emotional Strength [x]x Patient feels connected with others/family/visitors/staff [] Distress [] Loneliness/isolation [] Abandonment Spirituality of Patient [x] Person of Sherrie [x] Attends Restoration of their Sherrie [] Believes in Prayer [] Reads Bible or Caodaism materials [] There are Spiritual issues to be addressed Melter Operator Interventions []x Prayer [x] Active listening [x] Non-anxious presence [] Spiritual/emotional support [] Crisis/trauma care [] Spiritual counseling [] Bereavement support [] Provided bereavement packet [] Provided Bible/devotional materials [] Provided toy/stuffed animal, coloring book to patient or family member [] Provided Communion [] Anointing/[place] [] Salvation [] Completed spiritual assessment [] Other: Impact on Illness or Injury [] Angry [] Fearful [] Anxious [] Often cries [] Exhaustion [] Unable to work [] Unable to attend oriental orthodox [] Unable to walk/stand [] Unable to read [] Unable to drive [] Unable to eat/drink [] Unable to sleep [] Unable to be with family [] Patient intubated [] Other: Time spent with patient 10 min
--- NOTE | 2019-08-15 14:40 | P.PN_ITS ---
Subjective Subjective: Interval history: Patient reports right lower quadrant/inguinal area pain at times when she moves in certain way. She has nausea and had episode of vomiting during my evaluation, bilious. She reports gradually worsening dyspnea on exertion and chest pain with exertion that appears to be more and more frequent. She reports that every time she stops her activity her pain goes away in couple of minutes. She says rarely she needs to use nitroglycerin. She was supposed to have urinary stent placement earlier today but this is being postponed until cardiac evaluation can be performed. Case was discussed with Dr. Santana who will see patient in consultation. Vitals/I&O/Wt Last Vital Signs Temp 97.5 F L 08/15/19 12:32 Pulse 64 08/15/19 14:11 Resp 18 08/15/19 14:07 BP 186/114 08/15/19 12:32 Pulse Ox 96 08/15/19 14:11 08/14/19 08/15/19 08/15/19 22:59 06:59 14:59 Intake Total 100 / 100 598.333 / 598.333 Output Total 200 / 200 Balance -100 / -100 598.333 / 598.333 Weight last 48 hrs Weight 110.677 kg Weight 95.254 kg Physical Exam Const: COMMON NORMALS: no apparent distress and oriented x3 Resp: COMMON NORMALS: normal respiratory effort and clear to auscultation bilaterally AUSCULTATION: clear to auscultation bilaterally Cardio: COMMON NORMALS: regular rate, regular rhythm and S2 normal heart sound RATE: regular rate RHYTHM: regular rhythm HEART SOUNDS: S2 normal OTHER: No lower extremity edema GI: COMMON NORMALS: normal to inspection, nondistended, normoactive bowel sounds, soft to palpation and non-tender PALPATION: Yes soft Neuro: COMMON NORMALS: oriented x3 and no focal motor deficits Data : 08/15/19 05:44 08/15/19 05:44 Micro: Microbiology 08/15/19 07:57 Blood Culture - Preliminary Blood SPECIMEN COLLECTED 08/15/19 07:57 Blood Culture - Preliminary Blood SPECIMEN COLLECTED A&P Assessment and plan (1) Renal calculus, right: Status: Acute Code(s): N20.0 - Calculus of kidney Additional A&P Information Sepsis secondary to right-sided pyelonephritis Sepsis criteria met with tachycardia, leukocytosis, will check lactic acid, 5 mm right mid ureter calculus with moderate hydronephrosis Non-ST elevation TN, possibly type II. Irritable bowel syndrome Hypokalemia PLAN: Continue ceftriaxone and IV fluids. Will restart home medications including metoprolol and lisinopril. Blood pressure is on the higher side. Start nitroglycerin ointment 1 inch every 6 hours. Will avoid therapeutic anticoagulation given significant hematuria but will continue Plavix and aspirin. Patient is currently pain-free. Discussed extensively regarding importance of smoking cessation. Patient voiced understanding and may consider. She does not want pharmacological help. Awaiting cardiology evaluation. DVT prophylaxis SCDs, avoid anticoagulation in case she would need any intervention N.p.o. Attestations Medical Necessity Statement*: Patient with urinary obstruction secondary to stone and stable in general requires close inpatient monitoring, treatment and evaluation. Coding Level of Care Code Acute Auto Air Conditioning Apprentice for Christina Woodward Diagnoses Renal calculus, right N20.0
--- NOTE | 2019-08-15 15:10 | PM.MISC ---
Miscellaneous Note Purpose of Documentation: urology update Note: Currently symptoms are reasonably well controlled with parenteral narcotics. Cardiology has been consulted for evaluation of her current cardiac status and relationship to surgical risks. If it is deemed a relatively low risk we will proceed with endoscopy with hopes of definitive treatment of the stone. If the procedure needs to be absolutely minimized then placement of a stent can be performed usually in a very short period of time under MAC if that offers any safer preferences from a anesthetic perspective. At that point more definitive treatment of the stone could be undertaken once cardiac status is ironed out more. I will be available as the above is clarified.
[2019-08-15] MEDS: metoclopramide 5 mg/mL SDV 2 mL IVP (16:36)
--- NOTE | 2019-08-15 16:55 | PM.MISC ---
Miscellaneous Note Note: I have been asked to see this patient in consultation and preoperative screening for a urologic procedure. I reviewed the chart. I had been told that she was angry that I did not come to see her right away at noon when I was called. I had also been told that she had a less than comfortable interaction with anesthesia personnel earlier. The nurse taking care of her on the floor went in the room with me. As I started to ask her questions she suddenly became angry stating that I was cutting her off and that she was not interested in having any conversation with me. She then told the nurse she was signing out AGAINST MEDICAL ADVICE. I informed both Dr. Rodriguez and Dr. Sewell of this. Therefore the consultation has not been completed.
--- NOTE | 2019-08-15 17:07 | PC.NURSE ---
Patient left AMA. Dr Santana visited with patient. patient rude with Dr Santana. Patiend told Dr Santana she was leaving. Dr Rodriguez also talked to patient. Dr Sewell notified that patient left AMA.
--- NOTE | 2019-08-15 17:34 | PM.MISC ---
Miscellaneous Note Purpose of Documentation: Unfortunately patient left AMA before I could see her. As I was told by nursing personnel that patient earlier today got upset during anesthesia evaluation and then was rude to Dr. Santana and left AMA. Dr. Rodriguez was able to discuss with patient but she still did not want to stay. Dr. Rodriguez recommended to be evaluated by diagnostic sales specialist as soon as possible and patient's told RN that they are going to drive immediately to [facility] where her diagnostic sales specialist is for further evaluation of coronary artery disease. We have tried to call back to patient to ask her to vegetable picker antibiotics from pharmacy of her choice but we could not contact her as phone number provided is not working.
== END 2019-08-15 17:17 | disposition home or self-care (01) | DRG 872 ==
LOC: ER 08-15 01:52 → MEDSURG 08-15 03:09
PROVIDERS: Admitting Provider Internal Medicine; Emergency Provider Emergency Medicine; Visit Provider Internal Medicine
DX: A41.9 Sepsis, unspecified organism (principal); N20.1 Calculus of ureter; I25.10 Atherosclerotic heart disease of native coronary artery without angina pectoris; F17.210 Nicotine dependence, cigarettes, uncomplicated; E87.6 Hypokalemia; N23 Unspecified renal colic; K58.9 Irritable bowel syndrome, unspecified; Z53.29 Procedure and treatment not carried out because of patient's decision for other reasons; Z79.02 Long term (current) use of antithrombotics/antiplatelets; Z79.51 Long term (current) use of inhaled steroids
CPT/HCPCS: 12345; 36415; 71045; 74177; 80048; 80053; 81001; 83605; 83690; 84484; 85025; 87040; 87086; 93005; 96365; 96375; 96376; 99283; 99285; J0696; J1170; J1200; J2270; J2405; J2543; J2765; J7050; Q9967

== ENCOUNTER → 2019-08-20 15:07 | Outpatient (BNVA) | payer MEDICAID, SELFPAY | PROVIDERS: Visit Provider Nurse Practitioner | DX: N20.0 Calculus of kidney (principal); N20.1 Calculus of ureter | CPT/HCPCS: 80053; 81000; 85025 ==

== ENCOUNTER 2019-09-03 10:34 | Emergency (ER) | payer MEDICAID, SELFPAY ==
[2019-09-03 10:46] VITALS: BP 165/112; PULSE 82; RESP 15; TEMP 37; O2SAT 92; BMI 42.0
--- NOTE | 2019-09-03 11:16 | CT_ITS ---
WS: [id number] CT ABDOMEN AND PELVIS NONCONTRAST HISTORY: flank pain TECHNIQUE: Imaging performed through the abdomen and pelvis. Coronal and sagittal reformats are submi tted. All CT scans at [facility] use at least one of these dose optimization techniques: automated exposure control; mA and/or kV adjustment per patient size (includes targeted exams where d ose is matched to clinical indication); or iterative reconstruction. DLP: 1748.81 mGy.cm COMPARISON: 08/14/2019 Lower thorax: Lung bases are clear. No hiatal hernia. Liver: Normal, no mass or intrahepatic dilatation. Gallbladder: Prior cholecystectomy. Pancreas: Normal. Spleen: Prior splenectomy. Rounded nodule in the LEFT upper quadrant is probably a splenule. Adrenal glands: Normal. Right kidney: Normal size RIGHT kidney with numerous tiny calcific densities throughout the kidney. T he largest in the lower pole measures 1 cm. This was present on the prior study. Previously described RIGHT hydroureteronephrosis has resolved. There is a stone in the urinary bladder measuring 8 mm. Th is may be the calcification described in the proximal RIGHT ureter on 08/14/2019. Left kidney: Nephrolithiasis and a small extrarenal pelvis. No ureteral calcification. Extensive atherosclerosis. No aneurysm. No free fluid, intraperitoneal air or significant lymphadenopathy. GI tract: Normal appendix. Mild RIGHT colonic fecal retention. Abdominal wall: Intact. Pelvis: Well-distended urinary bladder. 8mm calcification near the orifice of the RIGHT ureter. No fr ee fluid or adenopathy. Normal appearance of the uterus and ovaries. Osseous structures: Unremarkable. CT/CT kidney stone [id number] IMPRESSION: 1. Bilateral nephrolithiasis with no hydronephrosis. 2. Recently described RIGHT hydroureteronephrosis has resolved. There is now a n 8 mm stone at the orifice of the RIGHT ureter in the urinary bladder. 3. Normal appendix. 4. Excessive atherosclerosis aorta. 5. Prior cholecystectomy. 6. Prior splenectomy.
--- NOTE | 2019-09-03 11:30 | W.ED.FEMALGU ---
HPI - Female Genitourinary General: Chief complaint: Urogenital-Female Stated complaint: ABDOMEN PAIN Time Seen by Provider: 09/03/19 11:00 Source: patient Mode of arrival: ambulatory Limitations: no limitations History of Present Illness: HPI Narrative: 54-year-old female who has history of kidney stones. She states she was admitted 2 weeks ago and was to have lithotripsy but she signed out AMA. She states that her pain is worsened in her right flank. States pain is an 8 out of 10. She denies any worsening or improving factors at this time. Denies any fevers. MD elicited complaint: dysuria Severity: moderate Female Urogenital Radiation: R Flank Severity scale (1-10): 6 Associated symptoms: Reports abdominal pain; Deny headache(s) or nausea Review of Systems Const: Denies: fever, chills, body aches or change in appetite Eyes: Denies: blurry vision or eye discomfort ENMT: Denies: throat pain or dental pain Card: Denies: chest pain Resp: Denies: shortness of breath GI: Reports: abdominal pain; Denies: nausea, vomiting or diarrhea : Denies: painful urination Musc: Denies: neck pain or back pain Skin/Breast: Denies: rash Neuro: Denies: headache Psych: Denies: depression Vipin/Lymph: Denies: easy bruising All/Imm: Denies: hives PFSH ED PFSH: Medical History (Updated 09/03/19 @ 13:01 by Joo Lan MD) Attention deficit hyperactivity disorder (ADHD) Coronary disease Family history of lactose intolerance History of breast cancer History of hiatal hernia History of irritable bowel syndrome History of kidney stones History of night terrors History of posttraumatic stress disorder (PTSD) Hydronephrosis concurrent with and due to calculi of kidney and ureter Hypertension Renal calculus, right Renal colic on right side Spleen injury Ureteral calculi Vitamin D deficiency Surgical History History of breast lump removal x 7 1980's History of section x 4 History of cholecystectomy Stented coronary artery Social History (Updated 08/19/19 @ 14:38 by DARELL Carranza) Smoking and tobacco status: current every day smoker Second hand smoke exposure: Yes Smoking risk assessment/counseling performed?: Yes Alcohol intake: never Desire information about alcohol rehabilitation?: No Counseling given: No Desire information about substance/drug rehabilitation?: No Counseling given: No Adopted: No Caregiver/support person: Yes Lives independently: Yes Household members: significant other and caregiver Housing: House Marital status: Single service: No Current occupational status: unemployed Current occupation: 4 History of recent travel: No Current gender identity: Female Physical Exam Const: COMMON NORMALS: no apparent distress, oriented x3 and healthy appearing HENMT: COMMON NORMALS: normocephalic and head/scalp atraumatic HEAD & SCALP: normocephalic and atraumatic Eye: COMMON NORMALS: PERRL and EOMs intact bilaterally PUPIL: Yes PERRL Neck/C-Spine: COMMON NORMALS: full ROM and supple Chest: COMMONS NORMALS: inspection of chest normal and palpation of chest normal Resp: COMMON NORMALS: normal respiratory effort, no retractions, no use of accessory muscles and clear to auscultation bilaterally AUSCULTATION: clear to auscultation bilaterally Cardio: COMMON NORMALS: regular rate, regular rhythm and no murmurs RATE: regular rate RHYTHM: regular rhythm GI: COMMON NORMALS: normal to inspection, nondistended, normoactive bowel sounds, soft to palpation, non-tender and no masses PALPATION: Yes soft Extremity: COMMON NORMALS: normal to inspection and full ROM Neuro: COMMON NORMALS: oriented x3, moves all extremities and no focal motor deficits Psych: COMMON NORMALS: mental status grossly normal, thought process normal and cooperative THOUGHT PROCESS: normal thought process Skin: COMMON NORMALS: no rashes or lesions noted and no wounds GENERAL SKIN EXAM: no rashes or lesions noted Course Vital Signs: Vital signs: Vital Signs Temperature 98.6 F 09/03/19 10:46 Pulse Rate 82 09/03/19 10:46 Respiratory Rate 18 09/03/19 12:36 Blood Pressure 165/112 09/03/19 10:46 Pulse Oximetry 98 09/03/19 12:36 [facility] Narrative: Medical decision making narrative: Patient presents here with kidney stone that is improved since previous CT. Patient's pain is improving here as well. She does not require any surgical interventions at this time. Will place patient on pain meds and she is stable for discharge. She is to follow-up Dr. Rodriguez outpatient and return if worsening. Lab Data: Labs: Lab Results 09/03/19 09/03/19 09/03/19 Range/Units 11:33 11:33 12:49 WBC 8.4 (4.0-10.0) 10^3/ uL RBC 5.57 H (4.1-5.3) 10^6/u L Hgb 18.1 H (11.5-15.3) g/dL Hct 53.1 H (37.0-47.0) % MCV 95.3 (81-99) fL MCH 32.5 (28.0-34.0) pg MCHC 34.1 (30.0-36.0) g/dL RDW 16.9 H (12.1-15.1) % Plt Count 365 (130-400) 10^3/c mm MPV 9.1 (7.4-10.4) fL Neut % (Auto) 44.9 % Lymph % (Auto) 39.6 % [place] % (Auto) 13.2 % Eos % (Auto) 1.2 % Baso % (Auto) 0.7 % Neut # (Auto) 3.8 (1.8-7.7) 10^3/u L Lymph # (Auto) 3.3 (0.8-4.8) 10^3/u L [place] # (Auto) 1.1 H (0.2-0.9) 10^3/u L Eos # (Auto) 0.1 (0.0-0.8) 10^3/u L Baso # (Auto) 0.1 (0.0-0.1) 10^3/u L Nucleated RBC % (a uto) 0 % Nucleated RBCs # 0.0 /100WBC Sodium 138 (136-145) mmol/L Potassium 3.6 (3.5-5.1) mmol/L Chloride 101 (98-107) mmol/L Carbon Dioxide 28 (22-29) mmol/L Anion Gap 12.6 (5-19) BUN 19 (6-20) mg/dL Creatinine 0.6 (0.5-0.9) mg/dL GFR Calculation 103.4 (90-130) mL/min Glucose 95 (65-115) mg/dL Calculated Osmolal ity 282 L (285-295) mOsm/k g Calcium 10.0 (8.5-10.5) mg/dL Total Bilirubin 0.7 (0.15-1.2) mg/dL AST 16 (0-32) U/L ALT 15 (0-33) U/L Alkaline Phosphata se 126 H (35-105) IU/L Total Protein 9.2 H (6.6-8.7) g/dL Albumin 4.7 (3.5-5.2) g/dL Globulin 4.5 (1.3-4.6) g/dL Urine Color Yellow (Yellow) Urine Appearance Sl hazy (CLEAR) Urine pH 5 (5-7) Ur Specific Gravit y 1.020 (1.005-1.030) Urine Protein Neg (Negative) Urine Glucose (UA) Norm (Normal) Urine Ketones Negative (Negative) Urine Blood 2+ H (Negative) Urine Nitrate Negative (Negative) Urine Bilirubin Neg (NEGATIVE) Urine Urobilinogen 1 H (Negative) mg/dL Ur Leukocyte Arabella ase Negative (Negative) Urine RBC 5-10 H (0-2) /hpf Urine WBC 0-4 H (0-5) /hpf Ur Squamous Epith Cells 40-55 H (0-5) Urine Bacteria Trace (NONE) Imaging Data: CT Abd/Pel: Radiologist's impression: [place] [address] CT Scan Report Signed Patient: Maribel Nunez Unit #: [id number] : 1965 Age/Sex: 54 / F ADM Date: 09/03/19 Loc: ER Room/Bed: Attending Dr: Ordering Provider/Ordering MD: Joo Lan MD Date of Service: 09/03/19 Procedure(s): CT kidney stone 70336 Accession Number(s): [id number] Report Number: [id number] WS: [id number] CT ABDOMEN AND PELVIS NONCONTRAST HISTORY: flank pain TECHNIQUE: Imaging performed through the abdomen and pelvis. Coronal and sagittal reformats are submitted. All CT scans at [facility] use at least one of these dose optimization techniques: automated exposure control; mA and/or kV adjustment per patient size (includes targeted exams where dose is matched to clinical indication); or iterative reconstruction. DLP: 1748.81 mGy.cm COMPARISON: 08/14/2019 Lower thorax: Lung bases are clear. No hiatal hernia. Liver: Normal, no mass or intrahepatic dilatation. Gallbladder: Prior cholecystectomy. Pancreas: Normal. Spleen: Prior splenectomy. Rounded nodule in the LEFT upper quadrant is probably a splenule. Adrenal glands: Normal. Right kidney: Normal size RIGHT kidney with numerous tiny calcific densities throughout the kidney. The largest in the lower pole measures 1 cm. This was present on the prior study. Previously described RIGHT hydroureteronephrosis has resolved. There is a stone in the urinary bladder measuring 8 mm. This may be the calcification described in the proximal RIGHT ureter on 08/14/2019. Left kidney: Nephrolithiasis and a small extrarenal pelvis. No ureteral calcification. Extensive atherosclerosis. No aneurysm. No free fluid, intraperitoneal air or significant lymphadenopathy. GI tract: Normal appendix. Mild RIGHT colonic fecal retention. Abdominal wall: Intact. Pelvis: Well-distended urinary bladder. 8mm calcification near the orifice of the RIGHT ureter. No free fluid or adenopathy. Normal appearance of the uterus and ovaries. Osseous structures: Unremarkable. CT/CT kidney stone [id number] IMPRESSION: 1. Bilateral nephrolithiasis with no hydronephrosis. 2. Recently described RIGHT hydroureteronephrosis has resolved. There is now an 8 mm stone at the orifice of the RIGHT ureter in the urinary bladder. 3. Normal appendix. 4. Excessive atherosclerosis aorta. 5. Prior cholecystectomy. 6. Prior splenectomy. Discharge Plan Discharge Patient Disposition: Home, Self-Care Clinical Impression: Renal calculus, right Condition: Stable Prescriptions: [place] 5-325 mg tablet 1 tab PO Q6H PRN (Reason: pain) Qty: 14 RF: 0 No Action atorvastatin 40 mg tablet 40 mg PO DAILY RF: 0 metoprolol tartrate 25 mg tablet 25 mg PO DAILY RF: 0 lisinopril 5 mg tablet 5 mg PO DAILY RF: 0 albuterol sulfate 2 mg/5 mL syrup 2 mg PO TID PRN (Reason: Shortness Of Breath) RF: 0 potassium chloride 20 mEq tablet extended release 20 meq PO DAILY RF: 0 nitroglycerin 0.4 mg tablet, sublingual 0.4 mg SUBLINGUAL Q5M PRN (Reason: Chest Pain) RF: 0 naproxen sodium [Wal-Proxen] 220 mg tablet 220 mg PO BID PRN (Reason: Pain) RF: 0 clopidogrel 75 mg tablet 75 mg PO DAILY RF: 0 hyoscyamine sulfate 0.125 mg tablet 0.125 mg PO QID RF: 0 triamcinolone acetonide 0.1 % cream 1 applic TOPICAL BID PRN (Reason: Rash) RF: 0 bumetanide 0.5 mg tablet 0.5 mg PO DAILY RF: 0 hydrocortisone 1 % cream 1 applic TOPICAL TID PRN (Reason: Rash) RF: 0 Amitiza 24 mcg capsule 24 mcg PO DAILY RF: 0 benzonatate 200 mg capsule 200 mg PO BID PRN (Reason: cough) Qty: 60 RF: 1 cetirizine 10 mg tablet 10 mg PO DAILY Qty: 30 RF: 5 epinephrine 0.3 mg/0.3 mL syringe 0.3 mg IM Q15M PRN (Reason: Allergic Reaction) Qty: 2 RF: 2 fluticasone propionate 50 mcg/actuation spray,suspension 2 spray INTRANASAL DAILY PRN (Reason: Congestion) Qty: 19.8 RF: 5 ipratropium-albuterol 0.5 mg-3 mg(2.5 mg base)/3 mL solution for nebulization 3 ml INHALATION QID PRN (Reason: Shortness Of Breath) Qty: 300 RF: 5 pantoprazole 40 mg tablet,delayed release (DR/EC) 40 mg PO BID Qty: 60 RF: 5 promethazine 25 mg tablet 25 mg PO TID PRN (Reason: Nausea And Vomiting) Qty: 90 RF: 5 sertraline 100 mg tablet 100 mg PO DAILY Qty: 30 RF: 5 ergocalciferol (vitamin D2) 1,250 mcg (50,000 unit) capsule 1,250 mcg PO .weekly Qty: 4 RF: 0 albuterol sulfate [ProAir HFA] 90 mcg/actuation HFA aerosol inhaler 2 puff INHALATION QID PRN (Reason: Shortness Of Breath) Qty: 18 RF: 5 Trelegy Ellipta 100-62.5-25 mcg blister with device 1 inh INHALATION Q24H Qty: 28 RF: 5 Discharge Orders: Discharge Order (Routine); Ordered 09/03/19 Ordered By: Joo Lan Discharge Diet: Advance as tolerated Discharge Activity: Resume usual activity Patient Instructions: Kidney Stones (ED) Coding Level of Care Code ED Class C Driver for Chg Fwd Exam Comprehensive
[2019-09-03 11:41] LABS: Basophils # 0.1 10^3/uL (0.0-0.1); Basophils % 0.7 %; Eosinophils # 0.1 10^3/uL (0.0-0.8); Eosinophils % 1.2 %; Hematocrit 53.1 % (37.0-47.0); Hemoglobin 18.1 g/dL (11.5-15.3); Lymphocytes # 3.3 10^3/uL (0.8-4.8); Lymphocytes % 39.6 %; Mean Corpuscular HGB Conc 34.1 g/dL (30.0-36.0); Mean Corpuscular Hemoglobin 32.5 pg (28.0-34.0); Mean Corpuscular Volume 95.3 fL (81-99); Mean Platelet Volume 9.1 fL (7.4-10.4); Monocytes # 1.1 10^3/uL (0.2-0.9); Monocytes % 13.2 %; Neutrophils # 3.8 10^3/uL (1.8-7.7); Neutrophils % 44.9 %; Nucleated Red Blood Cells % 0 %; Platelet Count 365 10^3/cmm (130-400); Red Blood Count 5.57 10^6/uL (4.1-5.3); Red Cell Distribution Width 16.9 % (12.1-15.1); White Blood Count 8.4 10^3/uL (4.0-10.0)
[2019-09-03 11:46] VITALS: RESP 20
[2019-09-03] MEDS: HYDROmorphone 1 mg/mL INJ 1 mL IVP (11:46)
[2019-09-03] MEDS: ondansetron 2 mg/ML SDV 2 mL 4 MG IVP (11:47)
[2019-09-03] MEDS: sodium chloride 0.9% 1,000 ML 999 ML IV (11:48)
--- NOTE | 2019-09-03 11:53 | PC.NURSE ---
patients bladder scanned approx 127 ml detected
[2019-09-03 12:22] LABS: Alanine Aminotransferase 15 U/L (0-33); Albumin Level 4.7 g/dL (3.5-5.2); Alkaline Phosphatase 126 IU/L (35-105); Anion Gap 12.6 (5-19); Aspartate Amino Transferase 16 U/L (0-32); Blood Urea Nitrogen 19 mg/dL (6-20); Carbon Dioxide 28 mmol/L (22-29); Chloride 101 mmol/L (98-107); Globulin 4.5 g/dL (1.3-4.6); Glomerular Filtration Rate 103.4 mL/min (90-130); Glucose 95 mg/dL (65-115); Osmolality Calculated 282 mOsm/kg (285-295); Potassium 3.6 mmol/L (3.5-5.1); Sodium 138 mmol/L (136-145); Total Bilirubin 0.7 mg/dL (0.15-1.2); Total Protein 9.2 g/dL (6.6-8.7)
[2019-09-03 12:36] VITALS: RESP 18; O2SAT 98
[2019-09-03] MEDS: morphine 4 mg/mL SDV 1 mL IVP (12:36)
[2019-09-03] MEDS: diphenhydrAMINE 50 mg/mL SDV 1mL 25 MG IVP (13:15)
[2019-09-03 13:21] LABS: Blood Urine 2+ (Negative); Glucose Urine UA Norm (Normal); Ketones Urine Negative (Negative); Protein Urine Neg (Negative); Urine Appearance SL Hazy (CLEAR); Urine Color Yellow (Yellow); pH Urine 5 (5-7)
[2019-09-03] MEDS: metoclopramide 5 mg/mL SDV 2 mL IVP (13:21)
[2019-09-03 13:22] LABS: Bacteria Urine TRACE; Bilirubin Urine Neg (NEGATIVE); Leukocyte Esterase Urine Negative (Negative); Nitrate Urine Negative (Negative); Squamous Epithelial Cell Urine 40-55 (0-5); Urobilinogen Urine 1 mg/dL (Negative); WBC Urine 0-4 /hpf (0-5)
[2019-09-03 13:23] LABS: Add Urine Culture? Yes
[2019-09-03 13:34] VITALS: BP 125/94; PULSE 69; RESP 20; O2SAT 96
--- NOTE | 2019-09-04 15:35 | DCPLANNER ---
follow up manager had message to schedule a follow up appointment for patient with Dr. Rodriguez. follow up manager called the office of Dr. Rodriguez, spoke with Marely, gave clinic patients information. follow up manager was told that patients information would be printed and given to Kathleen for review. Clinic will call patient with appointment information. follow up manager will call for appointment information.
--- NOTE | 2019-09-05 09:18 | DCPLANNER ---
Patient has a follow up appointment scheduled for Tuesday, September 10, 2019 at 1:[address] Rodriguez. Clinic will call patient with appointment information.
--- NOTE | 2019-10-21 15:42 | DCPLANNER ---
Patient did attend appointment scheduled for 09.10.19 with Michael.
== END 2019-09-03 13:39 | disposition home or self-care (01) ==
PROVIDERS: Emergency Provider Emergency Medicine
DX: N20.0 Calculus of kidney (principal); F90.9 Attention-deficit hyperactivity disorder, unspecified type; I25.10 Atherosclerotic heart disease of native coronary artery without angina pectoris; I10 Essential (primary) hypertension; E55.9 Vitamin D deficiency, unspecified; F17.210 Nicotine dependence, cigarettes, uncomplicated; Z85.3 Personal history of malignant neoplasm of breast
CPT/HCPCS: 12345; 36415; 74176; 80053; 81001; 85025; 87086; 96374; 96375; 99282; 99284; J1170; J1200; J2270; J2405; J2765; J7030

== ENCOUNTER 2019-09-10 11:57 | Outpatient (CLI) | payer MEDICAID, SELFPAY ==
--- NOTE | 2019-09-10 12:11 | XR_ITS ---
WS: [id number] ABDOMEN 1 VIEW(S) HISTORY: RENAL CALCULUS COMPARISON: CT 09/03/2019 Normal bowel gas pattern. Phleboliths in the pelvis. Recently described calcification at the RIGHT UV junction or in the urinar y bladder is not evident. No bone abnormality. XR/XR KUB 40349 IMPRESSION: No renal or ureteral calcifications identified.
== END 2019-09-10 11:58 | disposition home or self-care (01) ==
LOC: RADWPI 12:01
PROVIDERS: PCP Nurse Practitioner; Visit Provider Urology
DX: N20.0 Calculus of kidney (principal)
CPT/HCPCS: 74018; 81001

== ENCOUNTER 2019-09-25 08:00 | Outpatient (CLI) | payer MEDICAID, SELFPAY | END 2019-09-25 09:00 | disposition home or self-care (01) | LOC: RADWPI 01-20 16:56 | PROVIDERS: PCP Nurse Practitioner; Visit Provider Urology | DX: N20.0 Calculus of kidney (principal) | CPT/HCPCS: 81001 ==

== ENCOUNTER 2019-09-25 09:47 | Outpatient (CLI) | payer MEDICAID, SELFPAY ==
--- NOTE | 2019-09-25 09:45 | XR_ITS ---
WS: [id number] ABDOMEN KUB CLINICAL INFORMATION: Renal/ureteral calculi. COMPARISON: CT September 03, 2019 and KUB September 10, 2019 FINDINGS: Cholecystectomy clips. Multiple pelvic phleboliths. Previously described calculus at the right UVJ no t seen today. No definite ureteral calculi. XR/XR KUB [id number] Impression: No definite ureteral calculi today.
--- NOTE | 2019-09-25 11:21 | CT_ITS ---
WS: [id number] CT ABDOMEN AND PELVIS NONCONTRAST HISTORY: RIGHT URETERAL STONE TECHNIQUE: Imaging performed through the abdomen and pelvis. Coronal and sagittal reformats are submi tted. All CT scans at [facility] use at least one of these dose optimization techniques: automated exposure control; mA and/or kV adjustment per patient size (includes targeted exams where d ose is matched to clinical indication); or iterative reconstruction. DLP: 1091.38 mGycm COMPARISON: 09/03/2019 Lower thorax: Lung bases are clear. No hiatal hernia. Liver: Normal, no mass or intrahepatic dilatation. Gallbladder: Prior cholecystectomy. Pancreas: Normal. Spleen: Prior splenectomy. Residual splenule. Adrenal glands: Normal. Right kidney: Numerous calcifications scattered throughout the kidney. The largest in the lower pole measures 1 cm. RIGHT ureter is not dilated. Left kidney: There are several small calcifications scattered throughout the renal pelvis. The renal pelvis is slightly prominent which is probably an extrarenal pelvis. LEFT ureter is normal size. Atherosclerosis aorta. No aneurysm. No free fluid, intraperitoneal air or significant lymphadenopathy. GI tract: Normal appendix. Mild constipation. Abdominal wall: Intact. Pelvis: Normal. Osseous structures: Unremarkable. CT/CT kidney stone [id number] IMPRESSION: 1. No renal obstruction or hydronephrosis. Recently described distal RIGHT ure teral calcification at the UV junction is no longer present. 2. Bilateral nephrolithiasis. Pertinent is unchanged. 3. Cholelithiasis.
== END 2019-09-25 09:48 | disposition home or self-care (01) ==
LOC: RAD 09:51
PROVIDERS: PCP Nurse Practitioner; Visit Provider Urology
DX: N20.0 Calculus of kidney (principal); K80.20 Calculus of gallbladder without cholecystitis without obstruction
CPT/HCPCS: 74018; 74176

== ENCOUNTER 2020-02-23 08:00 | Outpatient (CLI) | payer MEDICAID, SELFPAY | END 2020-02-23 23:00 | disposition home or self-care (01) | LOC: CT 03-01 14:11 | PROVIDERS: PCP Nurse Practitioner; Visit Provider Nurse Practitioner | DX: D72.829 Elevated white blood cell count, unspecified (principal) | CPT/HCPCS: 80053; 82306; 83735; 85025 ==